=== PATIENT | male | born 1950 | race African-American/Black ===

== ENCOUNTER 2017-03-12 07:38 | Emergency (ER) | payer MEDICAID, MEDICARE, OTHER ==
[~2017-03-12] VITALS: Ht 185.4 cm; Wt 67.0 kg
[2017-03-12] MEDS ORDERED: SODIUM CHLORIDE 0.9% 1,000 ML IV ONE (08:22)
[2017-03-12 08:41] LABS: BASOPHILS % 0.4 % (0.0-2.0); HEMATOCRIT. 39.8 % (42.0-52.0); HEMOGLOBIN. 13.2 g/dL (14.0-18.0); LYMPHOCYTES % 8.3 % (20.0-50.0); MEAN CORPUSCULAR VOLUME 99.4 fL (80.0-94.0); MEAN PLATELET VOLUME 7.5 fl (7.4-10.4); MONOCYTES % 5.3 % (2.0-8.0); PLATELET 225 x1000/uL (130-400); RED BLOOD CELL COUNT 4.01 mill/uL (4.7-6.1); RED CELL DISTRIBUTION WIDTH 18.8 % (11.6-14.6)
[2017-03-12 08:48] LABS: INR 0.9; PROTHROMBIN TIME 9.4 sec
[2017-03-12 08:52] LABS: CARBON DIOXIDE 15 mEq/L (21-32); CHLORIDE 101 mEq/L (98-107)
[2017-03-12 09:08] LABS: CLARITY URINE CLEAR (CLEAR); COLOR URINE YELLOW (YELLOW); GLUCOSE URINE NEGATIVE (NEGATIVE); KETONES URINE 3+ (NEGATIVE); LEUKOCYTE ESTERASE URINE NEGATIVE (NEGATIVE); NITRITE URINE NEGATIVE (NEGATIVE); OCCULT BLOOD URINE 1+ (NEGATIVE); PROTEIN URINE 2+ (NEGATIVE); SPECIFIC GRAVITY URINE 1.018 (1.005-1.030); UROBILINOGEN URINE 0.2 E.U./dL (0.2-1.0)
[2017-03-12] MEDS ORDERED: DEXTROSE 50% WATER 50ML SYRINGE IV ONE (09:15)
[2017-03-12 10:06] VITALS: BP 141/101
== END 2017-03-12 10:28 | disposition home or self-care (01) ==
LOC: ER 09:15
DX: E16.2 Hypoglycemia, unspecified (principal); F17.210 Nicotine dependence, cigarettes, uncomplicated; F10.21 Alcohol dependence, in remission; R00.0 Tachycardia, unspecified
CPT/HCPCS: 36415; 71010; 80053; 81001; 82962; 85025; 85610; 93005; 96361; 96374; 99285; J7030

== ENCOUNTER 2017-04-03 18:39 | Emergency (ER) | payer MEDICARE ==
[~2017-04-03] VITALS: Ht 182.9 cm; Wt 80.0 kg
[2017-04-04 02:38] LABS: BASOPHILS % 1.3 % (0.0-2.0); EOSINOPHILS % 0.1 % (0.0-5.0); HEMATOCRIT. 38.2 % (42.0-52.0); LYMPHOCYTES % 21.1 % (20.0-50.0); MEAN CORPUSCULAR VOLUME 99.7 fL (80.0-94.0); MEAN PLATELET VOLUME 7.4 fl (7.4-10.4); MONOCYTES % 9.3 % (2.0-8.0); NEUTROPHILS % 68.2 % (40.0-76.0); PLATELET 253 x1000/uL (130-400); RED BLOOD CELL COUNT 3.83 mill/uL (4.7-6.1); RED CELL DISTRIBUTION WIDTH 17.4 % (11.6-14.6)
[2017-04-04 02:42] LABS: CHLORIDE 100 mEq/L (98-107)
[2017-04-04 02:45] LABS: INR 0.9; PROTHROMBIN TIME 9.7 sec (9.4-11.6)
[2017-04-04 02:51] LABS: CARBON DIOXIDE 22 mEq/L (21-32)
[2017-04-04 05:55] VITALS: BP 152/88
[2017-04-04 05:57] LABS: CLARITY URINE CLEAR (CLEAR); COLOR URINE YELLOW (YELLOW); GLUCOSE URINE NEGATIVE (NEGATIVE); KETONES URINE 3+ (NEGATIVE); LEUKOCYTE ESTERASE URINE NEGATIVE (NEGATIVE); NITRITE URINE NEGATIVE (NEGATIVE); OCCULT BLOOD URINE TRACE (NEGATIVE); PH URINE 5.5 (4.5-8.0); PROTEIN URINE 2+ (NEGATIVE)
== END 2017-04-04 07:12 | disposition home or self-care (01) ==
LOC: ER 18:40
DX: R10.84 Generalized abdominal pain (principal); R11.2 Nausea with vomiting, unspecified; F12.10 Cannabis abuse, uncomplicated; F17.200 Nicotine dependence, unspecified, uncomplicated
CPT/HCPCS: 36415; 80053; 81001; 83690; 85025; 85610; 99284

== ENCOUNTER 2018-05-19 07:40 | Emergency (ER) | payer MEDICARE ==
[~2018-05-19] VITALS: Ht 175.3 cm; Wt 81.0 kg
[2018-05-19 08:43] LABS: BASOPHILS % 0.7 % (0.0-2.0); EOSINOPHILS % 3.8 % (0.0-5.0); HEMATOCRIT. 41.4 % (42.0-52.0); HEMOGLOBIN. 14.1 g/dL (14.0-18.0); LYMPHOCYTES % 27.4 % (20.0-50.0); MEAN CORPUSCULAR HEMOGLOBIN 33.2 pg (28.0-32.0); MEAN CORPUSCULAR VOLUME 97.7 fL (80.0-94.0); MEAN PLATELET VOLUME 7.7 fl (7.4-10.4); MONOCYTES % 8.4 % (2.0-8.0); NEUTROPHILS % 59.7 % (40.0-76.0); PLATELET 354 x1000/uL (130-400); RED BLOOD CELL COUNT 4.24 mill/uL (4.7-6.1); RED CELL DISTRIBUTION WIDTH 14.8 % (11.6-14.6)
[2018-05-19 08:52] LABS: PARTIAL THROMBOPLASTIN TIME 25.7 sec (23.4-31.0); PROTHROMBIN TIME 9.8 sec (9.1-11.1)
[2018-05-19 08:56] LABS: CHLORIDE 102 mEq/L (98-107); ETHANOL BLOOD < 10 mg/dL
[2018-05-19 11:16] VITALS: BP 117/84
== END 2018-05-19 11:18 | disposition home or self-care (01) ==
LOC: ER 07:40 → CANBEDREQ 13:04
DX: R07.89 Other chest pain (principal); K92.0 Hematemesis; K29.70 Gastritis, unspecified, without bleeding; F17.200 Nicotine dependence, unspecified, uncomplicated; F12.10 Cannabis abuse, uncomplicated; Z98.890 Other specified postprocedural states
CPT/HCPCS: 36415; 71045; 80053; 83690; 83880; 84484; 85025; 85610; 85730; 93005; 99285; 99406; G0482

== ENCOUNTER 2019-02-28 21:00 | Inpatient (IN) | payer MEDICARE, MEDICAID ==
[~2019-02-28] VITALS: Ht 182.9 cm; Wt 80.3 kg
[2019-02-28 21:00] VITALS: BP_SYST 94; BP_SYST 95; BP_SYST 96; BP_SYST 98; BP_DIAS 62; BP_DIAS 65; BP_DIAS 66
[2019-02-28] MEDS ORDERED: CLONIDINE 0.1MG TABLET PO PRN (22:30)
[2019-02-28] MEDS ORDERED: ACETAMINOPHEN 325MG TABLET PO PRN (22:30)
[2019-02-28] MEDS ORDERED: IPRATROPIUM/ALBUTEROL 0.5-3(2.5)MG/3ML NEB HHN PRN (22:30)
[2019-02-28] MEDS ORDERED: TRAMADOL 50MG TABLET PO PRN (22:30)
[2019-02-28] MEDS ORDERED: DOCUSATE SODIUM 100MG CAPSULE PO PRN (22:30)
[2019-02-28] MEDS ORDERED: ZOLPIDEM TARTRATE 5MG TABLET PO PRN (22:30)
[2019-02-28] MEDS ORDERED: LORAZEPAM 0.5MG TABLET PO PRN (22:30)
[2019-02-28] MEDS ORDERED: NITROGLYCERIN 0.4MG TABLET SL SL PRN (22:30)
[2019-02-28] MEDS ORDERED: MAGNESIUM/ALUMINUM HYDROXIDE/SIMETHICONE 30ML UDC PO PRN (22:30)
[2019-02-28] MEDS ORDERED: GUAIFENESIN 200MG/10ML SUGAR FREE UDC PO PRN (22:30)
[2019-03-01] MEDS: DILTIAZEM HCL 30MG TABLET PO SCH ×5 (06:00→23:52)
[2019-03-01] MEDS: AMIODARONE HCL 200 MG TABLET PO SCH ×3 (06:38→21:51)
[2019-03-01 08:00] VITALS: BP 102/74
[2019-03-01 08:19] LABS: BASOPHILS % 1.2 % (0.0-2.0); EOSINOPHILS % 1.1 % (0.0-5.0); HEMATOCRIT. 30.3 % (42.0-52.0); HEMOGLOBIN. 10.3 g/dL (14.0-18.0); MEAN CORPUSCULAR HEMOGLOBIN 31.6 pg (28.0-32.0); MEAN CORPUSCULAR VOLUME 93.3 fL (80.0-94.0); MEAN PLATELET VOLUME 7.3 fl (7.4-10.4); MONOCYTES % 6.4 % (2.0-8.0); NEUTROPHILS % 77.3 % (40.0-76.0); PLATELET 600 x1000/uL (130-400); RED BLOOD CELL COUNT 3.25 mill/uL (4.7-6.1); RED CELL DISTRIBUTION WIDTH 13.5 % (11.6-14.6)
[2019-03-01] MEDS: ENOXAPARIN 80MG/0.8ML SYR SUBCUT SCH ×2 (08:30→20:31)
[2019-03-01] MEDS: POTASSIUM CHLORIDE 20MEQ TABLET SR PO SCH (08:30)
[2019-03-01] MEDS: THIAMINE HCL 100MG TABLET PO SCH (08:30)
[2019-03-01] MEDS: FAMOTIDINE 20MG TABLET PO SCH ×2 (08:31→20:31)
[2019-03-01] MEDS: ASPIRIN 81MG EC TABLET PO SCH (08:31)
[2019-03-01] MEDS: FOLIC ACID 1MG TABLET PO SCH (08:31)
[2019-03-01] MEDS: FERROUS SULFATE 325MG TABLET PO SCH ×3 (08:31→17:20)
[2019-03-01] MEDS: NICOTINE 14MG PATCH TD SCH (08:34)
[2019-03-01 08:51] LABS: CHLORIDE 101 mEq/L (98-107)
[2019-03-01 11:00] VITALS: BP 102/73
[2019-03-01] MEDS: LEVOFLOXACIN 250MG TABLET PO SCH (11:02)
[2019-03-01] MEDS ORDERED: BISACODYL 5MG TABLET PO PRN (17:00)
[2019-03-01 17:05] VITALS: BP_SYST 112; BP_SYST 119; BP_DIAS 55
[2019-03-01] MEDS ORDERED: PAMIDRONATE DISODIUM 90 MG in SODIUM CHLORIDE 0.9% 500 ML IV NR (18:30)
[2019-03-01 20:00] VITALS: BP 114/78
[2019-03-01] MEDS: ATORVASTATIN CALCIUM 10MG TABLET PO SCH (20:31)
[2019-03-02] MEDS: AMIODARONE HCL 200 MG TABLET PO SCH ×3 (05:08→20:50)
[2019-03-02] MEDS: DILTIAZEM HCL 30MG TABLET PO SCH ×3 (05:08→17:00)
[2019-03-02 07:30] VITALS: BP 109/77
[2019-03-02 07:57] VITALS: BP 109/77
[2019-03-02] MEDS: ENOXAPARIN 80MG/0.8ML SYR SUBCUT SCH ×2 (09:09→20:51)
[2019-03-02] MEDS: POTASSIUM CHLORIDE 20MEQ TABLET SR PO SCH (09:09)
[2019-03-02] MEDS: FAMOTIDINE 20MG TABLET PO SCH ×2 (09:10→20:51)
[2019-03-02] MEDS: FERROUS SULFATE 325MG TABLET PO SCH ×3 (09:10→17:13)
[2019-03-02] MEDS: NICOTINE 14MG PATCH TD SCH (09:10)
[2019-03-02] MEDS: THIAMINE HCL 100MG TABLET PO SCH (09:10)
[2019-03-02] MEDS: ASPIRIN 81MG EC TABLET PO SCH (09:10)
[2019-03-02] MEDS: FOLIC ACID 1MG TABLET PO SCH (09:10)
[2019-03-02 11:57] VITALS: BP 115/64
[2019-03-02] MEDS: LEVOFLOXACIN 250MG TABLET PO SCH (12:08)
[2019-03-02 16:47] VITALS: BP 103/70
[2019-03-02 20:00] VITALS: BP 98/51
[2019-03-02] MEDS: ATORVASTATIN CALCIUM 10MG TABLET PO SCH (20:51)
[2019-03-03] MEDS: DILTIAZEM HCL 30MG TABLET PO SCH ×4 (00:38→17:33)
[2019-03-03] MEDS: AMIODARONE HCL 200 MG TABLET PO SCH ×3 (06:00→21:08)
[2019-03-03 07:14] LABS: CHLORIDE 102 mEq/L (98-107)
[2019-03-03 07:22] LABS: PHOSPHORUS 2.5 mg/dL (2.5-4.9); TOTAL IRON BINDING CAPACITY 166 ug/dL (250-450)
[2019-03-03 07:24] LABS: BASOPHILS % 1.1 % (0.0-2.0); CREATINE KINASE 28 IU/L (39-308); EOSINOPHILS % 2.6 % (0.0-5.0); HEMOGLOBIN. 10.2 g/dL (14.0-18.0); LYMPHOCYTES % 14.8 % (20.0-50.0); MEAN CORPUSCULAR HEMOGLOBIN 31.6 pg (28.0-32.0); MEAN CORPUSCULAR VOLUME 93.1 fL (80.0-94.0); MEAN PLATELET VOLUME 7.6 fl (7.4-10.4); MONOCYTES % 9.1 % (2.0-8.0); NEUTROPHILS % 72.4 % (40.0-76.0); PLATELET 637 x1000/uL (130-400); RED BLOOD CELL COUNT 3.22 mill/uL (4.7-6.1); RED CELL DISTRIBUTION WIDTH 13.7 % (11.6-14.6)
[2019-03-03 07:34] LABS: FOLIC ACID (FOLATE) SERUM 19.2 ng/mL (>5.38)
[2019-03-03 08:00] VITALS: BP 111/84
[2019-03-03] MEDS: FERROUS SULFATE 325MG TABLET PO SCH ×5 (08:34→16:20)
[2019-03-03] MEDS: FAMOTIDINE 20MG TABLET PO SCH ×2 (08:34→20:40)
[2019-03-03] MEDS: FOLIC ACID 1MG TABLET PO SCH (08:34)
[2019-03-03] MEDS: THIAMINE HCL 100MG TABLET PO SCH (08:34)
[2019-03-03] MEDS: ASPIRIN 81MG EC TABLET PO SCH (08:34)
[2019-03-03] MEDS: NICOTINE 14MG PATCH TD SCH (08:34)
[2019-03-03] MEDS: POTASSIUM CHLORIDE 20MEQ TABLET SR PO SCH (08:34)
[2019-03-03] MEDS: ENOXAPARIN 80MG/0.8ML SYR SUBCUT SCH ×2 (08:34→20:41)
[2019-03-03] MEDS: LEVOFLOXACIN 250MG TABLET PO SCH (11:17)
[2019-03-03] MEDS: ASCORBIC ACID 500 MG TABLET PO SCH (12:13)
[2019-03-03] MEDS: LACTULOSE 20G/30ML UDC PO SCH ×2 (13:20→21:08)
[2019-03-03 16:53] LABS: BASOPHILS % 0.9 % (0.0-2.0); EOSINOPHILS % 2.2 % (0.0-5.0); HEMATOCRIT. 27.6 % (42.0-52.0); HEMOGLOBIN. 9.2 g/dL (14.0-18.0); LYMPHOCYTES % 14.4 % (20.0-50.0); MEAN PLATELET VOLUME 7.1 fl (7.4-10.4); NEUTROPHILS % 72.5 % (40.0-76.0); PLATELET 641 x1000/uL (130-400); RED BLOOD CELL COUNT 2.97 mill/uL (4.7-6.1)
[2019-03-03 20:00] VITALS: BP 101/73
[2019-03-03] MEDS: ATORVASTATIN CALCIUM 10MG TABLET PO SCH (20:40)
[2019-03-04] MEDS: DILTIAZEM HCL 30MG TABLET PO SCH ×5 (05:39→23:45)
[2019-03-04] MEDS: AMIODARONE HCL 200 MG TABLET PO SCH ×3 (05:43→21:12)
[2019-03-04] MEDS: LACTULOSE 20G/30ML UDC PO SCH ×3 (05:43→21:13)
[2019-03-04 08:03] VITALS: BP 100/74
[2019-03-04] MEDS: ASCORBIC ACID 500 MG TABLET PO SCH (08:45)
[2019-03-04] MEDS: ASPIRIN 81MG EC TABLET PO SCH (08:45)
[2019-03-04] MEDS: ENOXAPARIN 80MG/0.8ML SYR SUBCUT SCH ×2 (08:45→20:30)
[2019-03-04] MEDS: POTASSIUM CHLORIDE 20MEQ TABLET SR PO SCH (08:45)
[2019-03-04] MEDS: FERROUS SULFATE 325MG TABLET PO SCH ×6 (08:45→16:57)
[2019-03-04] MEDS: NICOTINE 14MG PATCH TD SCH (08:45)
[2019-03-04] MEDS: FOLIC ACID 1MG TABLET PO SCH (08:45)
[2019-03-04] MEDS: THIAMINE HCL 100MG TABLET PO SCH (08:45)
[2019-03-04] MEDS: FAMOTIDINE 20MG TABLET PO SCH ×2 (08:45→20:29)
[2019-03-04 10:50] LABS: T4 FREE 1.15 ng/dL (0.76-1.46)
[2019-03-04] MEDS: LEVOFLOXACIN 250MG TABLET PO SCH (11:05)
[2019-03-04 13:11] LABS: PROSTRATE SPECIFIC AG TOTAL 0.56 ng/mL (0.0-4.0)
[2019-03-04 20:00] VITALS: BP 98/66
[2019-03-04] MEDS: ATORVASTATIN CALCIUM 10MG TABLET PO SCH (20:29)
[2019-03-04 23:45] VITALS: BP 101/65
[2019-03-05] MEDS: DILTIAZEM HCL 30MG TABLET PO SCH ×3 (05:28→17:51)
[2019-03-05] MEDS: AMIODARONE HCL 200 MG TABLET PO SCH ×3 (05:28→21:04)
[2019-03-05] MEDS: LACTULOSE 20G/30ML UDC PO SCH ×2 (05:28→21:04)
[2019-03-05 07:55] LABS: BASOPHILS % 0.4 % (0.0-2.0); CHLORIDE 103 mEq/L (98-107); HEMATOCRIT. 30.9 % (42.0-52.0); HEMOGLOBIN. 10.3 g/dL (14.0-18.0); LYMPHOCYTES % 14.9 % (20.0-50.0); MEAN CORPUSCULAR HEMOGLOBIN 30.9 pg (28.0-32.0); MEAN CORPUSCULAR VOLUME 93.2 fL (80.0-94.0); MEAN PLATELET VOLUME 7.1 fl (7.4-10.4); NEUTROPHILS % 75.7 % (40.0-76.0); PLATELET 711 x1000/uL (130-400); RED BLOOD CELL COUNT 3.32 mill/uL (4.7-6.1); RED CELL DISTRIBUTION WIDTH 13.8 % (11.6-14.6)
[2019-03-05 08:06] VITALS: BP 99/79
[2019-03-05] MEDS: ASCORBIC ACID 500 MG TABLET PO SCH (08:51)
[2019-03-05] MEDS: ENOXAPARIN 80MG/0.8ML SYR SUBCUT SCH ×2 (08:51→21:04)
[2019-03-05] MEDS: POTASSIUM CHLORIDE 20MEQ TABLET SR PO SCH (08:51)
[2019-03-05] MEDS: FERROUS SULFATE 325MG TABLET PO SCH ×5 (08:51→17:51)
[2019-03-05] MEDS: FOLIC ACID 1MG TABLET PO SCH (08:51)
[2019-03-05] MEDS: ASPIRIN 81MG EC TABLET PO SCH (08:51)
[2019-03-05] MEDS: THIAMINE HCL 100MG TABLET PO SCH (08:51)
[2019-03-05] MEDS: FAMOTIDINE 20MG TABLET PO SCH ×2 (08:51→21:04)
[2019-03-05] MEDS: NICOTINE 14MG PATCH TD SCH (08:52)
[2019-03-05] MEDS: LEVOFLOXACIN 250MG TABLET PO SCH (11:40)
[2019-03-05] MEDS ORDERED: AMOXICILLIN/POTASSIUM CLAVULANATE 500/125MG TAB PO SCH (15:30)
[2019-03-05 16:16] LABS: CLARITY URINE CLEAR (CLEAR); COLOR URINE YELLOW (YELLOW); KETONES URINE TRACE (NEGATIVE); LEUKOCYTE ESTERASE URINE NEGATIVE (NEGATIVE); NITRITE URINE NEGATIVE (NEGATIVE); OCCULT BLOOD URINE 2+ (NEGATIVE); PROTEIN URINE 1+ (NEGATIVE); SPECIFIC GRAVITY URINE 1.021 (1.005-1.030)
[2019-03-05] MEDS: AMOXICILLIN/POTASSIUM CLAVULANATE 500/125MG TAB PO SCH (17:50)
[2019-03-05] MEDS ORDERED: LORAZEPAM 0.5MG TABLET PO PRN (18:30)
[2019-03-05 20:00] VITALS: BP 104/65
[2019-03-05] MEDS ORDERED: ZOLPIDEM TARTRATE 5MG TABLET PO PRN (21:00)
[2019-03-05] MEDS: ATORVASTATIN CALCIUM 10MG TABLET PO SCH (21:04)
[2019-03-05] MEDS ORDERED: TRAMADOL 50MG TABLET PO PRN (22:30)
[2019-03-06] MEDS: AMOXICILLIN/POTASSIUM CLAVULANATE 500/125MG TAB PO SCH ×3 (01:30→17:37)
[2019-03-06] MEDS: DILTIAZEM HCL 30MG TABLET PO SCH ×4 (06:00→17:29)
[2019-03-06] MEDS: AMIODARONE HCL 200 MG TABLET PO SCH ×3 (06:34→21:25)
[2019-03-06 08:00] VITALS: BP 117/61
[2019-03-06 08:02] LABS: BASOPHILS % 0.5 % (0.0-2.0); EOSINOPHILS % 0.8 % (0.0-5.0); HEMATOCRIT. 30.9 % (42.0-52.0); HEMOGLOBIN. 10.5 g/dL (14.0-18.0); LYMPHOCYTES % 12.4 % (20.0-50.0); MEAN CORPUSCULAR HEMOGLOBIN 31.4 pg (28.0-32.0); MEAN CORPUSCULAR VOLUME 92.8 fL (80.0-94.0); MEAN PLATELET VOLUME 7.1 fl (7.4-10.4); NEUTROPHILS % 80.3 % (40.0-76.0); PLATELET 721 x1000/uL (130-400); RED BLOOD CELL COUNT 3.33 mill/uL (4.7-6.1); RED CELL DISTRIBUTION WIDTH 13.9 % (11.6-14.6)
[2019-03-06] MEDS: ENOXAPARIN 80MG/0.8ML SYR SUBCUT SCH ×2 (08:34→21:25)
[2019-03-06] MEDS: THIAMINE HCL 100MG TABLET PO SCH (08:34)
[2019-03-06] MEDS: ASCORBIC ACID 500 MG TABLET PO SCH (08:34)
[2019-03-06] MEDS: ASPIRIN 81MG EC TABLET PO SCH (08:34)
[2019-03-06] MEDS: NICOTINE 14MG PATCH TD SCH (08:34)
[2019-03-06] MEDS: POTASSIUM CHLORIDE 20MEQ TABLET SR PO SCH (08:34)
[2019-03-06] MEDS: FERROUS SULFATE 325MG TABLET PO SCH ×3 (08:34→17:37)
[2019-03-06] MEDS: FAMOTIDINE 20MG TABLET PO SCH ×2 (08:34→21:25)
[2019-03-06] MEDS: FOLIC ACID 1MG TABLET PO SCH (08:35)
[2019-03-06 20:00] VITALS: BP 120/73
[2019-03-06] MEDS: LACTULOSE 20G/30ML UDC PO SCH (21:25)
[2019-03-06] MEDS: ATORVASTATIN CALCIUM 10MG TABLET PO SCH (21:25)
[2019-03-07 00:30] VITALS: BP 115/71
[2019-03-07] MEDS: AMOXICILLIN/POTASSIUM CLAVULANATE 500/125MG TAB PO SCH ×2 (01:00→10:28)
[2019-03-07] MEDS: DILTIAZEM HCL 30MG TABLET PO SCH ×3 (01:00→11:20)
[2019-03-07] MEDS: AMIODARONE HCL 200 MG TABLET PO SCH ×2 (06:36→13:23)
[2019-03-07] MEDS ORDERED: LEVOTHYROXINE SODIUM 25MCG TABLET PO SCH (07:00)
[2019-03-07 08:00] VITALS: BP 95/64
[2019-03-07 09:15] LABS: 25-HYDROXY VITAMIN D3 28 ng/mL (.)
[2019-03-07] MEDS: THIAMINE HCL 100MG TABLET PO SCH (09:28)
[2019-03-07] MEDS: FOLIC ACID 1MG TABLET PO SCH (09:28)
[2019-03-07] MEDS: ASCORBIC ACID 500 MG TABLET PO SCH (09:28)
[2019-03-07] MEDS: ENOXAPARIN 80MG/0.8ML SYR SUBCUT SCH (09:28)
[2019-03-07] MEDS: NICOTINE 14MG PATCH TD SCH (09:28)
[2019-03-07] MEDS: FAMOTIDINE 20MG TABLET PO SCH (09:28)
[2019-03-07] MEDS: POTASSIUM CHLORIDE 20MEQ TABLET SR PO SCH (09:28)
[2019-03-07] MEDS: FERROUS SULFATE 325MG TABLET PO SCH ×2 (09:28→12:13)
[2019-03-07] MEDS: ASPIRIN 81MG EC TABLET PO SCH (09:28)
[2019-03-07 13:28] VITALS: BP 95/64
[2019-03-07] MEDS ORDERED: ERGOCALCIFEROL 50000UNITS CAPSULE PO SCH (14:00)
== END 2019-03-07 14:55 | disposition home health service (06) | DRG 64 ==
PROVIDERS: ADMIT Physical Medicine & Rehabilitation Spinal Cord Injury Medicine; ATTEND Internal Medicine
DX: I63.9 Cerebral infarction, unspecified (principal); J18.9 Pneumonia, unspecified organism; A41.9 Sepsis, unspecified organism; E43 Unspecified severe protein-calorie malnutrition; G93.40 Encephalopathy, unspecified; J90 Pleural effusion, not elsewhere classified; I42.9 Cardiomyopathy, unspecified; E78.00 Pure hypercholesterolemia, unspecified; D64.9 Anemia, unspecified; E83.52 Hypercalcemia; F01.50 Vascular dementia, unspecified severity, without behavioral disturbance, psychotic disturbance, mood disturbance, and anxiety; F10.20 Alcohol dependence, uncomplicated; F17.200 Nicotine dependence, unspecified, uncomplicated; F06.31 Mood disorder due to known physiological condition with depressive features; I48.0 Paroxysmal atrial fibrillation; R13.10 Dysphagia, unspecified; R47.01 Aphasia; I10 Essential (primary) hypertension; W18.39XA Other fall on same level, initial encounter; Y93.89 Activity, other specified; Y92.89 Other specified places as the place of occurrence of the external cause; Z68.24 Body mass index [BMI] 24.0-24.9, adult; Y99.8 Other external cause status; Z79.899 Other long term (current) drug therapy; Z80.9 Family history of malignant neoplasm, unspecified; Z81.1 Family history of alcohol abuse and dependence; Z86.73 Personal history of transient ischemic attack (TIA), and cerebral infarction without residual deficits; Z87.01 Personal history of pneumonia (recurrent)
CPT/HCPCS: 36415; 71045; 82140; 82306; 82310; 82330; 82533; 82550; 82607; 82728; 82746; 82962; 83540; 83550; 83735; 83970; 84100; 84134; 84153; 84439; 84443; 84481; 86376; 92523; 92610; 93005; 93970; 97110; 97116; 97162; 97166; 97530; 97535; J1650; J2430; J7040; J7050; G0103